=== PATIENT | male | born 1950 | race Caucasian/White ===

== ENCOUNTER 2017-10-08 18:46 | Emergency (ER) | payer BC ==
[2017-10-08 18:52] VITALS: BP 143/78; BMI 27.9
--- NOTE | 2017-10-08 19:57 | DR.GENAD ---
HPI - PCP Primary Care Physician: NFD - Complaint/Symptoms Chief Complaint:: ABDOMMINAL PAIN AND LOWER BACK PAIN - Nurses notes reviewed Nurses Notes Review: Yes - Source History Provided: Patient - Mode of Arrival Mode of Arrival: Ambulatory - Timing Onset of Chief Complaint: 10/08/17 Came on: Suddenly - Duration Duration: Constant Duration: Days - Severity Severity: Moderate PMH - PMH Past Medical History: Yes Past Medical History: Dyslipidemia, Hypertension Past Surgical History: No - Family History History of Family Medical Conditions: Yes Family Medical History: Cancer, MD, Hypertension - Social History Does any household member use tobacco: No Alcohol Use: None Do you use any recreational Drugs:: No Lives With: Family Lives Where: Home - infectious screening In the last 2 months have you had wt loss of >10#?: NO Have you had fever, night sweats or hemotysis?: No Have you traveled outside the country in the last 6 months?: No Isolation: Standard PE - Vital Signs Vitals: Temperature 99.3 F Pulse Rate 68 Respiratory Rate 17 Blood Pressure 143/78 O2 Sat by Pulse Oximetry 99 ROR - Labs Reviewed Result Diagrams: 10/08/17 20:15 10/08/17 20:15 Laboratory: WBC 10.7 X10^3/uL (3.6-10.0) H 10/08/17 20:15 RBC 5.26 X10^6/uL (4.7-6.0) 10/08/17 20:15 Hgb 14.8 g/dL (13.5-18.0) 10/08/17 20:15 Hct 43.6 % (42.0-54.0) 10/08/17 20:15 MCV 83.0 fL (80.0-100.0) 10/08/17 20:15 MCH 28.1 pg (27.0-34.0) 10/08/17 20:15 MCHC 33.8 g/dL (33.0-35.0) 10/08/17 20:15 RDW 13.7 % (11.6-16.5) 10/08/17 20:15 Plt Count 245 X10^3/uL (150.0-450.0) 10/08/17 20:15 MPV 8.4 fL (7.4-11.0) 10/08/17 20:15 Neut % 88.3 % (42.0-75.0) H 10/08/17 20:15 Lymph % 4.2 % (21.0-51.0) L 10/08/17 20:15 Fisher % 6.2 % (0.0-13.0) 10/08/17 20:15 Eos % 0.2 % (0.9-2.9) L 10/08/17 20:15 Baso % 1.1 % (0.2-1.0) H 10/08/17 20:15 Neut # 9.5 x10^3/uL (2.2-4.8) H 10/08/17 20:15 Lymph # 0.5 X10^3/uL (1.3-2.9) L 10/08/17 20:15 Fisher # 0.7 x10^3/uL (0.3-0.8) 10/08/17 20:15 Eos # 0.0 x10^3/uL (0.0-0.2) 10/08/17 20:15 Baso # 0.1 X10^3/uL (0.0-0.1) 10/08/17 20:15 Absolute Nucleated RBC 0.0 /100WBC 10/08/17 20:15 Sodium 141 mmol/L (136-145) 10/08/17 20:15 Corrected Sodium 142 mmol/L (136-145) 10/08/17 20:15 Potassium 4.0 mmol/L (3.5-5.1) 10/08/17 20:15 Chloride 107 mmol/L (98-107) 10/08/17 20:15 Carbon Dioxide 27.9 mmol/L (21-32) 10/08/17 20:15 BUN 17 mg/dL (7-18) 10/08/17 20:15 Creatinine 1.18 mg/dL (0.70-1.30) 10/08/17 20:15 Est GFR (MDRD) Af Amer > 60 (>60) 10/08/17 20:15 Est GFR (MDRD) Non-Af > 60 (>60) 10/08/17 20:15 Glucose 142 mg/dL (65-99) H 10/08/17 20:15 Calcium 8.4 mg/dL (8.5-10.1) L 10/08/17 20:15 Corrected Calcium TNP 10/08/17 20:15 Total Bilirubin 0.50 mg/dL (0.2-1.0) 10/08/17 20:15 AST 15 Units/L (15-37) 10/08/17 20:15 ALT 21 Units/L (12-78) 10/08/17 20:15 Alkaline Phosphatase 100 Units/L (46-116) 10/08/17 20:15 Total Protein 7.0 g/dL (6.4-8.2) 10/08/17 20:15 Albumin 3.6 g/dL (3.4-5.0) 10/08/17 20:15 Globulin 3.4 g/dL (2.5-4.5) 10/08/17 20:15 Albumin/Globulin Ratio 1.1 Ratio (1.1-2.1) 10/08/17 20:15 Amylase 37 Units/L (25-115) 10/08/17 20:15 Lipase 127 Units/L (73-393) 10/08/17 20:15 Specimen Type Clean catch urine 10/08/17 19:56 Urine Color Yellow (YELLOW) 10/08/17 19:56 Urine Appearance Clear (CLEAR) 10/08/17 19:56 Urine pH 7.0 (5.0 - 8.0) 10/08/17 19:56 Ur Specific Culver 1.015 (1.000-1.030) 10/08/17 19:56 Urine Protein 2+ (NEGATIVE) 10/08/17 19:56 Urine Glucose (UA) Negative (NEGATIVE) 10/08/17 19:56 Urine Ketones Negative (NEGATIVE) 10/08/17 19:56 Urine Occult Blood 1+ (NEGATIVE) 10/08/17 19:56 Urine Nitrite Negative (NEGATIVE) 10/08/17 19:56 Urine Bilirubin Negative (NEGATIVE) 10/08/17 19:56 Urine Urobilinogen 2+ (NORMAL) 10/08/17 19:56 Ur Leukocyte Esterase 1+ (NEGATIVE) 10/08/17 19:56 Urine RBC Rare /HPF (NEGATIVE) 10/08/17 19:56 Urine WBC 01 - 04 /HPF (NEGATIVE) 10/08/17 19:56 Ur Squamous Epith Cells Few /HPF (NEGATIVE) 12/23/17 19:56 Amorphous Sediment 1+ /HPF (NEGATIVE) 10/08/17 19:56 Urine Bacteria Negative /HPF (NEGATIVE) 10/08/17 19:56 Hyaline Casts Rare /LPF (NEGATIVE) 10/08/17 19:56 Urine Mucus Moderate /HPF (NEGATIVE) 10/08/17 19:56 Ur Culture Indicated? No/not indicated 10/08/17 19:56 - Discharge Plan Condition: Stable Prescriptions: Levofloxacin [LEVAQUIN TAB 750 MG *] 750 mg PO DAILY #7 tab Levofloxacin in D5w [Levaquin Premix IV 500 mg] 500 mg IV Q24H #1 bag - Follow ups/Referrals Follow ups/Referrals: NFD,None [Primary Care Provider] - 3 days - Instructions Instructions: Cholelithiasis, Abdominal Pain, Adult, [id number], Cholecystitis, [id number] Additional Instructions: RETURN TO ED IF WORSE, FOLLOW UP WITH PCP WHEN YOU RETURN TO DISCUSS CT FINDINGS.
[2017-10-08 20:12] LABS: BILIRUBIN,URINE NEGATIVE (NEGATIVE); BLOOD/HEMOGLOBIN,URINE 1+ (NEGATIVE); GLUCOSE, URINE NEGATIVE (NEGATIVE); KETONES,URINE NEGATIVE (NEGATIVE); LEUKOCYTE ESTERASE ,URINE 1+ (NEGATIVE); NITRITES,URINE NEGATIVE (NEGATIVE); PROTEIN,URINE 2+ (NEGATIVE); UROBILINOGEN,URINE 2+ (NORMAL)
[2017-10-08 20:20] LABS: APPEARANCE,URINE CLEAR (CLEAR); COLOR,URINE YELLOW (YELLOW)
[2017-10-08 20:21] LABS: BASOPHILS # (AUTO) 0.1 X10^3/uL (0.0-0.1); BASOPHILS % (AUTO) 1.1 % (0.2-1.0); EOSINOPHILS % (AUTO) 0.2 % (0.9-2.9); HEMATOCRIT 43.6 % (42.0-54.0); HEMOGLOBIN 14.8 g/dL (13.5-18.0); LYMPHOCYTES # (AUTO) 0.5 X10^3/uL (1.3-2.9); LYMPHOCYTES % (AUTO) 4.2 % (21.0-51.0); MEAN CORPUSCULAR HEMOGLOBIN 28.1 pg (27.0-34.0); MEAN CORPUSCULAR HGB CONC 33.8 g/dL (33.0-35.0); MEAN PLATELET VOLUME 8.4 fL (7.4-11.0); MONOCYTES # (AUTO) 0.7 x10^3/uL (0.3-0.8); MONOCYTES % (AUTO) 6.2 % (0.0-13.0); NEUTROPHILS # (AUTO) 9.5 x10^3/uL (2.2-4.8); NEUTROPHILS % (AUTO) 88.3 % (42.0-75.0); PLATELET COUNT 245 X10^3/uL (150.0-450.0); RED BLOOD COUNT 5.26 X10^6/uL (4.7-6.0); RED CELL DISTRIBUTION WIDTH 13.7 % (11.6-16.5); WHITE BLOOD COUNT 10.7 X10^3/uL (3.6-10.0)
[2017-10-08 20:35] LABS: ALANINE AMINOTRANSFERASE 21 Units/L (12-78); ALBUMIN 3.6 g/dL (3.4-5.0); ALKALINE PHOSPHATASE 100 Units/L (46-116); AMYLASE 37 Units/L (25-115); ASPARTATE AMINO TRANSFERASE 15 Units/L (15-37); BLOOD UREA NITROGEN 17 mg/dL (7-18); CALCIUM 8.4 mg/dL (8.5-10.1); CARBON DIOXIDE 27.9 mmol/L (21-32); CHLORIDE 107 mmol/L (98-107); COR NA(FOR HYPERGLY) 142 mmol/L (136-145); CREATININE 1.18 mg/dL (0.70-1.30); LIPASE 127 Units/L (73-393); SODIUM 141 mmol/L (136-145); eGFR BLACK RACES > 60 (>60); eGFR NON BLACK RACES > 60 (>60)
[2017-10-08 20:44] LABS: RBC,URINE RARE /HPF (NEGATIVE)
[2017-10-08 20:45] LABS: AMORPHOUS SEDIMENT,UR 1+ /HPF (NEGATIVE); BACTERIA,URINE NEGATIVE /HPF (NEGATIVE); HYALINE CASTS, URINE RARE /LPF (NEGATIVE); MUCUS,URINE MODERATE /HPF (NEGATIVE); SQUAMOUS EPITHELIAL CELL,UR FEW /HPF (NEGATIVE)
== END 2017-10-08 22:52 | disposition home or self-care (01) ==
LOC: ER 18:46 → EDBD 18:46 → ER 22:52
DX: K80.20 Calculus of gallbladder without cholecystitis without obstruction (principal); K81.9 Cholecystitis, unspecified; R10.84 Generalized abdominal pain; M54.5 Low back pain
CPT/HCPCS: 36415; 74176; 80053; 81001; 82150; 83690; 85025; 99282; 99283